=== PATIENT | female | born 1950 | race Caucasian/White ===

== ENCOUNTER 2017-06-01 11:48 | Outpatient (CLI) | payer MEDICARE, BC ==
--- NOTE | 2017-06-01 14:04 | ULT ---
CAROTID ULTRASOUND WITH KENYON SCALE AND DOPPLER DUPLEX COLOR FLOW IMAGING SPECTRAL ANALYSIS PERFORMED: CLINICAL INDICATION: Amaurosis fugax. FINDINGS: There is mild plaque, notably involving the proximal aspect of cervical right ICA. PEAK SYSTOLIC VELOCITY (CM/S): Right CCA 113 Left CCA 111 Right ICA 87 Left ICA 76 There is antegrade flow within the visualized bilateral vertebral arteries. IMPRESSION: 1. No hemodynamically significant stenosis of the right internal carotid artery. 2. No hemodynamically significant stenosis of the left internal carotid artery. POS: [facility]
== END 2017-06-01 11:49 | disposition home or self-care (01) ==
LOC: ULT 11:48
PROVIDERS: ATTEND Ophthalmology
DX: G45.3 Amaurosis fugax (principal)
CPT/HCPCS: 93880

== ENCOUNTER 2017-07-05 08:27 | Outpatient (CLI) | payer MEDICARE, BC ==
--- NOTE | 2017-07-05 09:16 | ULT ---
RIGHT UPPER QUADRANT ULTRASOUND: HISTORY: Epigastric pain. FINDINGS: The liver demonstrates homogeneous echotexture without focal mass or intrahepatic ductal dilatation. The tail of the pancreas is not visualized. The remainder of the pancreas is unremarkable. No gall stones, gallbladder wall thickening, or pericholecystic fluid is seen. The common duct measures 6 mm in diameter. The right kidney is unremarkable. No free fluid is seen in the Morison's pouch. IMPRESSION: No evidence of cholelithiasis. POS: [facility]
== END 2017-07-05 08:28 | disposition home or self-care (01) ==
LOC: ULT 08:27
PROVIDERS: ATTEND Internal Medicine Gastroenterology
DX: K21.9 Gastro-esophageal reflux disease without esophagitis (principal); R10.13 Epigastric pain; R13.10 Dysphagia, unspecified
CPT/HCPCS: 76705

== ENCOUNTER 2017-09-19 13:34 | Outpatient (CLI) | payer MEDICARE, BC ==
--- NOTE | 2017-09-19 14:28 | ULT ---
THYROID ULTRASOUND: HISTORY: Thyroid nodule. COMPARISON: None. TECHNIQUE: Real-time, siegel scale, and color evaluation of the thyroid is performed. FINDINGS: The isthmus measures 2 mm in AP dimension. The right lobe measures 4.1 x 1.3 x 1.3 cm and the left l obe measures 3.5 x 1.1 x 1.4 cm. In the right lobe is a 0.6 x 0.3 x 0.5 cm wider than tall solid nod ule. Within the left lobe of the thyroid is a 0.3 cm wider than tall solid nodule. IMPRESSION: Normal background echotexture and vascularity of the thyroid. No abnormal nodules requiring fine nee dle aspiration per TIRADS criteria. POS: [facility]
== END 2017-09-19 13:35 | disposition home or self-care (01) ==
LOC: SCSULT 13:34
DX: Z09 Encounter for follow-up examination after completed treatment for conditions other than malignant neoplasm (principal); Z86.39 Personal history of other endocrine, nutritional and metabolic disease
CPT/HCPCS: 76536

== ENCOUNTER 2017-11-07 10:55 | Outpatient (CLI) | payer MEDICARE, BC | END 2017-11-07 10:56 | disposition home or self-care (01) | LOC: BICMAMMO 10:55 | PROVIDERS: ATTEND Family Medicine | DX: Z12.31 Encounter for screening mammogram for malignant neoplasm of breast (principal) | CPT/HCPCS: 77063; 77067 ==

== ENCOUNTER 2017-11-14 07:55 | Outpatient (CLI) | payer MEDICARE, BC ==
--- NOTE | 2017-11-14 09:58 | MRI ---
MRI CERVICAL SPINE: Multiplanar, multisequential imaging of the cervical spine obtained according to protocol. INDICATION: Spondylosis without myelopathy. Neck pain radiating to both arms. FINDINGS: Postoperative changes are noted. Anterior hardware is seen at C5, C6, and C7. This hardware produce s metallic artifact. There is partial fusion at these levels. Moderate degenerative changes are noted with anterior osteophytes prominent at C3-4 and C4-5. Loss o f disk space at C3-4 and C4-5. At C2-3, mild spondylosis effaces the anterior subarachnoid space. At C3-4, disk bulge and spondylosis efface the anterior subarachnoid space and abut the anterior cord . At C4-5, disk bulge and spondylosis impinge and mildly flatten the anterior cord. Right foraminal st enosis at this level due to facet and uncinate hypertrophy. At C5-6, bony hypertrophic changes efface the anterior subarachnoid space and abut the anterior cord centrally. At C6-7, bony hypertrophic changes efface the anterior subarachnoid space and abut the anterior cord to the left of midline. These changes encroach into the foramen and appear to displace the traversin g nerve root on the left. At C7-T1, mild spondylosis. Anterior subarachnoid space is preserved. Cord signal appears normally preserved. IMPRESSION: 1. Postop changes at C5, C6, and C7 levels as described. Bony hypertrophic changes are noted at C6- 7 prominent to the left and impinging on the exiting left C7 nerve root. 2. Posterior disk bulge with spondylosis at C4-5 impinges on and mildly flattens the anterior cord a nd there is right foraminal stenosis at this level as described above. POS: [facility] [place]
== END 2017-11-14 07:56 | disposition home or self-care (01) ==
LOC: SCSMRI 07:55
DX: Z47.89 Encounter for other orthopedic aftercare (principal); M47.812 Spondylosis without myelopathy or radiculopathy, cervical region; M53.82 Other specified dorsopathies, cervical region; M50.021 Cervical disc disorder at C4-C5 level with myelopathy; M99.81 Other biomechanical lesions of cervical region; Z98.890 Other specified postprocedural states
CPT/HCPCS: 72141

== ENCOUNTER 2018-03-21 07:37 | Outpatient (CLI) | payer MEDICARE, BC ==
--- NOTE | 2018-03-21 14:14 | NM ---
NUCLEAR MEDICINE GASTRIC EMPTYING EXAM: HISTORY: Epigastric abdominal pain. TECHNIQUE: A nuclear medicine gastric emptying scan was performed after ministration of 2.1 mCi of Technetium 99 m sulfur colloid mixed with eggs. FINDINGS: 28% emptying is seen at 33 minutes. 60% emptying is seen at 60 minutes. 92% emptying is seen at 130 minutes. 96% emptying is seen at 185 minutes. T-1/2 of gastric emptying is 51 minutes. IMPRESSION: Normal gastric emptying exam. POS: [facility]
== END 2018-03-21 07:38 | disposition home or self-care (01) ==
LOC: NM 07:37
PROVIDERS: ATTEND Internal Medicine Gastroenterology
DX: R10.13 Epigastric pain (principal)
CPT/HCPCS: 78264; A9541

== ENCOUNTER 2018-05-07 07:48 | Outpatient (CLI) | payer MEDICARE, BC ==
[2018-05-07] MEDS ORDERED: Gadobenate Dimeglumine 529 MG/1 ML (20ML VIAL) ONE (09:00)
--- NOTE | 2018-05-07 13:31 | MRI ---
MRI ABDOMEN WITH AND WITHOUT IV CONTRAST: INDICATIONS: History of abnormality seen on a prior evaluation [facility]. The patient is also experiencing left-si ded upper abdominal pain with bloating. COMPARISON: Prior complete abdomen ultrasound dated 04/17/[address] abdomen and pelvis dated 02/14/2018 (both e xams from [facility]). CONTRAST: MultiHance 3 mL. TECHNIQUE: Multiplanar, multisequence MR images were obtained of the abdomen, utilizing MRCP protocol, and 20 mL of MultiHance was utilized for the examination. FINDINGS: Respiratory motion artifact slightly limits image detail. No definite intraluminal signal abnormalit y is seen within the common bile duct. The common bile duct measures between 6 and 7 mm, which is at the upper limits of normal for a patient of this age. No definite pancreatic head mass or adenopath y is evident. No visible gallstones are present. No suspicious focal hepatic lesion is evident. Th ere are subcentimeter cysts within the right hepatic lobe. The visualized kidneys are normal appeari ng. The spleen is normal in size. No free fluid is evident. No visible adenopathy is seen within t he upper abdomen. There is a fat-containing umbilical hernia. There are scattered degenerative and osteoarthritic changes. There are bilateral breast implants. IMPRESSION: No intraluminal defect seen within the common bile duct. The common bile duct measures between 6 and 7 mm, which is within normal limits for the patient's age. No intrahepatic biliary ductal dilatatio n is evident. No gallstones are present. No visible mass is seen within the region of the pancreati c head. No lymphadenopathy is present. POS: [facility]
== END 2018-05-07 07:49 | disposition home or self-care (01) ==
LOC: SCSMRI 07:48
PROVIDERS: ATTEND Internal Medicine Gastroenterology
DX: R10.9 Unspecified abdominal pain (principal)
CPT/HCPCS: 74183; 82565; A9579

== ENCOUNTER 2019-03-27 08:56 | Outpatient (CLI) | payer MEDICARE, BC ==
--- NOTE | 2019-03-27 10:42 | MMO ---
Bilateral MAMMO Bilat Diag [facility]. CLINICAL HISTORY: Patient is 68 years old and is seen for diagnostic exam. The patient has no personal history of cancer. The patient has a history of bilateral Implants in 1982. VIEWS: The views performed were: bilateral craniocaudal with tomosynthesis; bilateral mediolateral oblique with tomosynthesis; and bilateral mediolateral with tomosynthesis. FILMS COMPARED: The present examination has been compared to prior imaging studies performed at [facility] on 04/12/2015, 11/07/2017 and 03/27/2019, and at [facility] on 04/24/2007. This study has been interpreted with the assistance of computer-aided detection. MAMMOGRAM FINDINGS: The breasts are heterogeneously dense, which could obscure a lesion on mammography. Finding 1: There is a stable intramammary lymph node seen in the right breast. Finding 2: Normal implants are present. Finding 3: No mass is seen in the lower right breast at site of palpable abnormality on ;mammogram. However, focal ultrasound at site of palpable abnormality shows a small nodule with a tract extending from the nodule to the skin surface most suggestive of an epidermal inclusion cyst. There are no suspicious masses, suspicious calcifications, or new areas of architectural distortion. IMPRESSION: FINDING 1: STABLE INTRAMAMMARY LYMPH NODE IN THE RIGHT BREAST IS BENIGN. FINDING 2: IMPLANT FINDINGS IN BOTH BREASTS ARE BENIGN. FINDING 3: FINDINGS LIKELY RELATED TO EPIDERMAL INCLUSION CYST AT SITE OF PALPABLE ABNORMALITY right BREAST. THIS SHOULD BE FURTHER MANAGED CLINICALLY. IF THIS ENLARGES OR PAIN PERSISTS, SURGICAL CONSULTATION FOR EXCISION CAN BE PERFORMED. A ROUTINE FOLLOW-UP MAMMOGRAM IN 1 YEAR IS RECOMMENDED. THE RESULTS OF THIS EXAM WERE SENT TO THE PATIENT. ACR BI-RADS Category 2 - Benign finding MAMMOGRAPHY NOTE: 1. A negative mammogram report should not delay a biopsy if a dominant of clinically suspicious mass is present. 2. Approximately 10% to 15% of breast cancers are not detected by mammography. 3. Adenosis and dense breasts may obscure an underlying neoplasm. Reported by: SONJA HERNANDEZ MD Electonically Signed: [id number]
--- NOTE | 2019-03-27 11:04 | ULT ---
RIGHT BREAST ULTRASOUND: FINDINGS: There is a small, slightly heterogeneous but predominantly hypoechoic nodule seen within the most inf eromedial aspect of the right breast at the 4 o'clock position, which is closely adjacent to the skin surface, and there is a small, hypoechoic tract which extends through the skin to the skin surface. This is most suggestive of a small epidermal inclusion cyst measuring 4 mm. No additional solid or cy stic lesion is seen in this region. IMPRESSION: 1. BI-RADS category 2 - benign findings. Routine annual mammographic screening is recommended. 2. Imaging findings most compatible with a small epidermal inclusion cyst at the site of patient's pa lpable abnormality at the 4 o'clock position, right breast. This should be further managed clinically . Re-imaging of this nodule can be performed if there is enlargement versus surgical consultation for excision. POS: [facility]
== END 2019-03-27 08:57 | disposition home or self-care (01) ==
LOC: BICMAMMO 08:56
DX: N63.10 Unspecified lump in the right breast, unspecified quadrant (principal); Z98.82 Breast implant status
CPT/HCPCS: 76642; 77066; G0279

== ENCOUNTER 2020-08-23 07:55 | Outpatient (CLI) | payer MEDICARE, BC | END 2020-08-23 07:56 | disposition home or self-care (01) | LOC: TBSIIMAG 07:55 | DX: M47.27 Other spondylosis with radiculopathy, lumbosacral region (principal); M43.16 Spondylolisthesis, lumbar region; M51.26 Other intervertebral disc displacement, lumbar region; Z98.1 Arthrodesis status; Z98.890 Other specified postprocedural states | CPT/HCPCS: 72148 ==